=== PATIENT | female | born 1980 ===

== ENCOUNTER 2023-07-03 07:30 | Inpatient (IN) | payer OTHER ==
[~2023-07-03] VITALS: Ht 165.1 cm; Wt 80.7 kg
[2023-07-03 09:07] LABS: URINE APPEARANCE Clear; URINE BILIRRUBIN Negative (NEGATIVE); URINE BLOOD Large; URINE COLOR Yellow; URINE GLUCOSE Negative (NEGATIVE); URINE LEUKOCYTE Trace; URINE NITRATE Negative; URINE PROTEIN 30 (NEGATIVE)
[2023-07-03 09:08] LABS: URINE BACTERIA 636.2 uL (0.0-1933); URINE EPITHELIAL CELLS 10.2 uL (0.0-38.8); URINE RBC 769.8 uL (0.0-20.8); URINE WBC 21.3 uL (0.0-23.2)
[2023-07-03 09:20] LABS: HEMATOCRIT 40.7 % (36.0-45.00); HEMOGLOBIN 13.6 g/dL (12.0-15.00); MEAN CELL VOLUME 79.6 fL (80.00-100.00); MEAN CORPUSCULAR HEMOGLOBIN 26.6 pg (27.00-32.0); MEAN CORPUSCULAR HGB CONC 33.4 g/dl (32.0-36.0); PLATELET COUNT 216 K/uL (150-450); RED BLOOD COUNT 5.11 M/uL (4.00-6.00)
[2023-07-03 09:28] LABS: RED CELL DISTRIBUTION WIDTH 22.9 % (11.5-14.5)
[2023-07-03 09:32] LABS: INR 1.01; PARTIAL THROMBOPLASTIN TIME 26.8 SECONDS (22.0-34.0); PROTHROMBIN TIME 10.6 SECONDS (9.0-11.5)
[2023-07-03 09:35] LABS: ALBUMIN 4.3 gm/dL (3.4-5.0); BILIRUBIN TOTAL 0.75 mg/dL (0.3-1.2); CALCIUM 9.5 mg/dL (8.5-10.1); CREATININE SERUM 0.7 mg/dL (0.55-1.02); GFR 90.9; GLOBULINA 3.7 G/DL (2.4-3.5); POTASSIUM 3.82 mEq/L (3.5-5.1)
[2023-07-09 20:09] LABS: HEMATOCRIT 34.3 % (36.0-45.00); HEMOGLOBIN 11.2 g/dL (12.0-15.00); MEAN CORPUSCULAR HEMOGLOBIN 26.5 pg (27.00-32.0); MEAN CORPUSCULAR HGB CONC 32.7 g/dl (32.0-36.0); PLATELET COUNT 175 K/uL (150-450); RED BLOOD COUNT 4.23 M/uL (4.00-6.00); RED CELL DISTRIBUTION WIDTH 21.5 % (11.5-14.5)
== END 2023-07-12 10:35 | disposition home or self-care (01) | DRG 743 ==
LOC: OB/GYN 07-09 07:30 → O/R 07-09 10:00 → OB/GYN 07-09 17:04
PROVIDERS: Obstetrics & Gynecology; ADMIT Obstetrics & Gynecology; ATTEND Obstetrics & Gynecology
PROC: 0UT74ZZ Resection of Bilateral Fallopian Tubes, Percutaneous Endoscopic Approach (ICD-10-PCS; 2023-07-09)
PROC: 0UT94ZZ Resection of Uterus, Percutaneous Endoscopic Approach (ICD-10-PCS; principal; 2023-07-09 08:45)
DX: D25.2 Subserosal leiomyoma of uterus (principal); N80.03 Adenomyosis of the uterus; N72 Inflammatory disease of cervix uteri; Z20.822 Contact with and (suspected) exposure to COVID-19